=== PATIENT | male | born 1965 | race Hispanic/Latino ===

== ENCOUNTER 2021-01-11 11:22 | Day surgery (SDC) | payer OTHER ==
[2021-01-08 09:20] VITALS: BP 125/71
[~2021-01-11] VITALS: Ht 172.7 cm; Wt 79.4 kg
[2021-01-11 11:50] VITALS: BP 135/83
[2021-01-11] MEDS ORDERED: DEXAMETHASONE SOD PHOSPHATE 4 MG/ML 1ML VIAL ONE ×2 (12:06→12:53)
[2021-01-11] MEDS ORDERED: LIDOCAINE HCL-MPF 1% 2ML VIAL ONE ×2 (12:06→12:59)
[2021-01-11] MEDS ORDERED: IOPAMIDOL 10 ML VIAL ONE (12:24)
[2021-01-11 13:10] VITALS: BP 135/78
[2021-01-11 13:25] VITALS: BP 108/68
[2021-01-11 13:40] VITALS: BP 111/62
[2021-01-11 13:55] VITALS: BP 114/66
== END 2021-01-11 13:55 | disposition home or self-care (01) ==
LOC: DAH 11:22
PROVIDERS: ATTEND Family Medicine Sports Medicine
DX: M51.16 Intervertebral disc disorders with radiculopathy, lumbar region (principal); Z20.822 Contact with and (suspected) exposure to COVID-19; G89.29 Other chronic pain; E78.5 Hyperlipidemia, unspecified; M19.90 Unspecified osteoarthritis, unspecified site; Z82.49 Family history of ischemic heart disease and other diseases of the circulatory system; Z83.3 Family history of diabetes mellitus; Z96.653 Presence of artificial knee joint, bilateral
CPT/HCPCS: 62323; A4215 ×3; A4216; A4221; A4222; A4223 ×2; A4606; A4663; C9803; J1100 ×2; J3490 ×2; Q9966; U0003; 62320; 77003